=== PATIENT | male | born 1965 | race Caucasian/White ===

== ENCOUNTER 2019-11-10 14:37 | Emergency (ER) | payer BC, SELFPAY ==
--- NOTE | 2019-11-10 15:43 | RAD ---
LEFT KNEE FOUR VIEWS: History: Left knee pain. FINDINGS: Degenerative changes are present. No acute fracture, dislocation, or bony destruction is seen. No alison nt effusion is present. IMPRESSION: As above. POS: OFF
== END 2019-11-10 15:58 | disposition home or self-care (01) ==
LOC: MADERS 14:37
DX: M17.12 Unilateral primary osteoarthritis, left knee (principal); F17.220 Nicotine dependence, chewing tobacco, uncomplicated